=== PATIENT | female | born 1955 | race Caucasian/White ===

== ENCOUNTER → 2020-12-30 10:50 | Outpatient (CLI) | payer MEDICARE, OTHER, SELFPAY ==
--- NOTE | 2020-12-30 10:56 | DI.MRI.S_ITS ---
PROCEDURE: MR HEAD/BRAIN WO/W CON INDICATIONS: Secondary malignant neoplasm of brain TECHNIQUE: Noncontrast axial T1 spin echo, axial T2 fast spin echo, sagittal and axial FLAIR, coronal T2 fast spin echo, axial gradient echo, axial diffusion and ADC through the brain. After the administration of contrast, axial and coronal 3D VIBE or T1 spin echo with fat saturation through the brain. COMPARISON: [facility], , MRI BRAIN W/WO CONTRAST, 10/02/2020, 9:37. FINDINGS: Image quality: Excellent. CSF Spaces: Basal cisterns are patent. No extra-axial fluid collections. Ventricles are normal in size and shape. Brain: Within the right parietal occipital region, there is lobulated focus of enhancement within the posterior medial aspect. It appears decreased in size measuring approximately 1.8 cm AP by 1.7 cm transverse by 1.2 cm craniocaudal compared to 2.1 cm AP by 1.3 cm transverse by 1.2 cm craniocaudal. In addition, there is decreased appearance of enhancement within the affected region compared to prior exam. There is persistent appearance of surrounding FLAIR signal appearing slightly more prominent. No new areas of abnormal enhancement are identified. The brainstem appears normal. Diffusion-weighted images demonstrate no acute ischemic insults. No chronic ischemic insults. Normal intravascular flow voids are present. Skull and face: Calvarial marrow is normal in signal. Orbits appear normal. Sinuses: Sinuses and mastoids appear clear. IMPRESSION: 1. Lobulated and patchy area of enhancement within the right parietal occipital lobe decreased in size compared to prior exam. It is noted that there is a similar versus increased prominence of FLAIR signal intensity surrounding the lesion. While interval increased appearance of FLAIR signal cannot be completely excluded, overall appearance is suggestive of slight differences in technique. However, it is recommended that there is correlation to recent radiation treatment, as treatment can increased FLAIR signal. Continued short interval imaging follow-up is recommended. 2. No new areas of abnormal enhancement are identified. Dictated by: Sophia Mackey M.D. on 12/31/2020 at 16:31 Approved by: Sophia Mackey M.D. on 12/31/2020 at 16:37
== END ==
PROVIDERS: PCP Internal Medicine; Referring Provider Internal Medicine; Visit Provider Internal Medicine
DX: C80.1 Malignant (primary) neoplasm, unspecified (principal); C79.31 Secondary malignant neoplasm of brain
CPT/HCPCS: 70553

== ENCOUNTER → 2022-03-11 13:52 | Outpatient (CLI) | payer MEDICARE, OTHER, SELFPAY ==
--- NOTE | 2022-03-11 13:56 | DI.MRI.S_ITS ---
PROCEDURE: MR HEAD/BRAIN WO/W CON INDICATIONS: Secondary malignant neoplasm of brain TECHNIQUE: Noncontrast axial T1 spin echo, axial T2 fast spin echo, sagittal and axial FLAIR, coronal T2 fast spin echo, axial gradient echo, axial diffusion and ADC through the brain. After the administration of contrast, axial and coronal and sagittal T1 spin echo with fat saturation through the brain. COMPARISON: [facility], RG, MRI BRAIN W/WO CONTRAST, 10/02/2020, 9:37. [facility], MR, MR HEAD/BRAIN WO/W CON, 12/30/2020, 11:08. FINDINGS: Image quality: Excellent. CSF spaces: Basal cisterns are patent. No extra-axial fluid collections. Ventricles are normal in size and shape. Brain: No midline shift. The previous focus of enhancement within the right parietal occipital lobe appears to have been removed status post resection. No definitive increased enhancement is identified at the resection cavity. There is an overall appearance of increased T2/FLAIR signal, slightly increased compared to prior exam. Gradient hypointensities are present consistent with hemorrhagic blood products. Punctate areas of restricted diffusion are present which may be related to recent postoperative changes including punctate ischemia. There is cerebral volume loss for age. There is periventricular white matter chronic small vessel ischemic change. The brainstem appears normal. No chronic ischemic insults. Normal intravascular flow voids are present. Skull and face: Calvarial marrow is normal in signal. Orbits appear normal. Sinuses: Sinuses demonstrate left maxillary sinus mucous retention cyst versus polyp. IMPRESSION: Apparent interval resection of previously enhancing mass within the right parietal occipital lobe. No areas of residual enhancement are identified there is mild increased all FLAIR signal intensity which may be related to recent postsurgical intervention and continued interval follow-up is recommended. No new areas of abnormal enhancement are identified. Dictated by: Sophia Mackey M.D. on 03/11/2022 at 22:06 Approved by: Sophia Mackey M.D. on 03/11/2022 at 22:10
== END ==
PROVIDERS: PCP Student in an Organized Health Care Education/Training Program; Referring Provider Neurological Surgery; Visit Provider Neurological Surgery
DX: C79.31 Secondary malignant neoplasm of brain (principal)
CPT/HCPCS: 70553; A9579

== ENCOUNTER → 2022-05-15 06:31 | Outpatient (CLI) | payer MEDICARE, OTHER, SELFPAY ==
[2022-05-15 07:50] LABS: COVID19 -Nasal RAPID Negative (Negative)
== END ==
PROVIDERS: PCP Family Medicine; Referring Provider Internal Medicine; Visit Provider Internal Medicine
DX: Z20.822 Contact with and (suspected) exposure to COVID-19 (principal)
CPT/HCPCS: 87635; C9803

== ENCOUNTER → 2022-05-15 06:34 | Outpatient (CLI) | payer MEDICARE, OTHER, SELFPAY ==
--- NOTE | 2022-05-20 09:21 | PM.PFT.1 ---
Pulmonary Function Test Referral & Results Date Patient Seen: 05/15/22 Requesting provider: Dallin Field Results: The spirometry demonstrates an FVC of 1.27 L which is 36% of predicted. The FEV1 was measured at 1.19 L which is 45% of predicted. The FEV1/FVC ratio was 94 which is 123% of predicted. The diffusing capacity was measured at 15.09 which is 53% of predicted. No hemoglobin value was provided, so no correction for potential anemia could be made, if appropriate. The maximum voluntary ventilation was reduced Interpretation: Patient's forced spirometry demonstrates moderate obstructive lung disease with reduction FEV1 although FEV1/FVC ratio is preserved. No bronchodilator was administered and patient was unable to fit inside the body box and so no lung volumes could be performed Diffusing capacity is moderately reduced suggesting disease at the capillary alveolar level as well Clinical correlation suggested
== END ==
PROVIDERS: PCP Family Medicine; Referring Provider Internal Medicine Pulmonary Disease; Visit Provider Internal Medicine Pulmonary Disease
DX: J43.2 Centrilobular emphysema (principal); Z87.891 Personal history of nicotine dependence; Z20.822 Contact with and (suspected) exposure to COVID-19
CPT/HCPCS: 87635; 94010; 94729; C9803